=== PATIENT | male | born 1930 ===

== ENCOUNTER 2018-02-13 12:35 | Emergency (ER) | payer OTHER ==
[~2018-02-13] VITALS: Ht 177.8 cm; Wt 68.2 kg
[2018-02-13] MEDS ORDERED: IOVERSOL 350 MG/ML 100 ML VIAL ONE (12:54)
[2018-02-13] MEDS ORDERED: ASPI-556 PO (13:04)
[2018-02-13] MEDS ORDERED: PHENY100 PO (13:04)
[2018-02-13 13:07] LABS: BASOPHILS % (AUTO) 0.9 % (0.0-2.0); HEMATOCRIT 38.5 % (41-53); HEMOGLOBIN 13.6 g/dL (13.5-17.5); LYMPHOCYTES # (AUTO) 3.4 K/uL (1.0-4.8); MEAN CORPUSCULAR HEMOGLOBIN 33.8 pg (26.0-34.0); MEAN CORPUSCULAR HGB CONC 35.2 G/dL (31.0-37.0); MEAN CORPUSCULAR VOLUME 96 fL (80-100); MONOCYTES # (AUTO) 0.8 K/uL (0.1-1.0); MONOCYTES % (AUTO) 9.3 % (2.0-9.0); NEUTROPHILS # (AUTO) 4.1 K/uL (1.8-7.7); NEUTROPHILS % (AUTO) 48.8 % (40.0-70.0); PLATELET COUNT (AUTO) 137 K/uL (150-450); RED BLOOD CELL COUNT(AUTO) 4.01 MIL/uL (4.50-5.90); RED CELL DISTRIBUTION WIDTH 13.2 % (11.5-14.5)
[2018-02-13 13:13] LABS: CALCIUM, TOTAL 8.2 mg/dL (8.8-10.5); CREATININE 1.33 mg/dL (0.60-1.30); POTASSIUM 4.2 mmol/L (3.5-5.1)
[2018-02-13 13:17] LABS: PROTHROMBIN TIME 10.9 SEC (9.4-11.6)
[2018-02-13 13:19] LABS: ALBUMIN 3.9 g/dL (3.4-5.0); BILIRUBIN,TOTAL 0.5 mg/dL (0.1-1.0); TOTAL PROTEIN, SERUM 7.2 g/dL (6.4-8.2)
[2018-02-13] MEDS ORDERED: ASPIRIN 325 MG TABLET PO ONE (13:30)
[2018-02-13 13:34] LABS: PHENYTOIN (DILANTIN) 11.2 mcg/mL (10.0-20.0)
[2018-02-13 15:40] VITALS: BP 161/72
== END 2018-02-13 16:11 | disposition short-term general hospital (02) ==
LOC: EMS 12:44
DX: G45.9 Transient cerebral ischemic attack, unspecified (principal); I95.9 Hypotension, unspecified; I25.10 Atherosclerotic heart disease of native coronary artery without angina pectoris
CPT/HCPCS: 36415; 70450; 70496; 71045; 80053; 80185; 85025; 85610; 85730; 93005; 99291; Q9967